=== PATIENT | male | born 1955 | race Caucasian/White ===

== ENCOUNTER 2019-08-25 09:54 | Observation (INO) | payer MEDICARE, OTHER ==
[~2019-08-25 09:54] MED LIST: Acetaminophen 325 MG Tab PO SCH; EPINEPHrine 1 MG/ML SDV ONE; Lidocaine 1%/Sod Bicarbonate in NS 8.4% 1 ML Syringe IDERM PRN; Pregabalin 25 MG Cap PO SCH; Ropivacaine 0.5% 5 MG/ML 30 ML SDV ONE; Sodium Chloride 0.9% 10 ML Syringe FLUSH PRN; oxyCODONE ER 10 MG TAB.ER PO SCH
[2019-08-25] MEDS: Lactated Ringers 1,000 ML IV SCH ×2 (10:25→21:31)
--- NOTE | 2019-08-25 11:33 | PCM.PREANE ---
Preanesthetic Assessment - Procedure Proposed Procedure: left total knee - Anesthesia/Transfusion/Family Hx Anesthesia History: Prior Anesthesia Without Reaction Family History of Anesthesia Reaction: No Transfusion History: No Prior Transfusion(s) - Review of Systems General: No Symptoms Pulmonary: No Symptoms Cardiovascular: No Symptoms Gastrointestinal: No Symptoms Neurological: No Symptoms Other: Reports: Easy Bruising - Physical Assessment NPO Status Date: 08/24/19 (sip of water with pill) NPO Status Time: 21:00 Vital Signs: Last Vital Signs Temp 97.2 F 08/25/19 10:05 Pulse 56 L 08/25/19 10:05 Resp 16 08/25/19 10:05 BP 159/91 H 08/25/19 10:05 Pulse Ox 96 08/25/19 10:05 Height: 6 ft Weight: 122.016 kg ASA Class: 3 Mental Status: Alert & Oriented x3 Airway Class: Mallampati = 2 Dentition: Reports: Bridge, Missing Tooth/Teeth Thyro-Mental Finger Breadths: 3 Mouth Opening Finger Breadths: 3 ROM/Head Extension: Other Lungs: Clear to Auscultation Cardiovascular: Regular Rate, Regular Rhythm - Lab Values: Laboratory Last Values C-Reactive Protein < 0.2 mg/dL (<1.0) 08/25/19 10:20 MRSA (PCR) Negative 08/19/19 09:25 - Allergies Allergies/Adverse Reactions: Allergies Allergy/AdvReac Type Severity Reaction Status Date / Time shrimp Allergy Hives Uncoded 08/22/19 12:56 - Blood Blood Available: No - Acknowledgements Anesthesia Type Planned: Spinal Pt an Appropriate Candidate for the Planned Anesthesia: Yes Alternatives and Risks of Anesthesia Discussed w Pt/Guardian: Yes Pt/Guardian Understands and Agrees with Anesthesia Plan: Yes PreAnesthesia Questionnaire HEENT History: Reports: Impaired Vision, Other (See Below) Other HEENT History: bridge, partial, glasses Cardiovascular History: Reports: Afib, High Cholesterol, Hypertension Respiratory History: Reports: None Gastrointestinal History: Reports: None, GERD (occasionally) Genitourinary History: Reports: Other (See Below) Other Genitourinary History: erectile dysfunction [employer] History: Reports: None Musculoskeletal History: Reports: Other (See Below) Other Musculoskeletal History: bilateral carpal release, knee pain Neurological History: Reports: None Psychiatric History: Reports: None Endocrine/Metabolic History: Reports: None Hematologic History: Reports: None Immunologic History: Reports: None Oncologic (Cancer) History: Reports: None Dermatologic History: Reports: None - Past Surgical History Head Surgeries/Procedures: Reports: None HEENT Surgical History: Reports: Naso-Sinus Surgery Cardiovascular Surgical History: Reports: None Respiratory Surgical History: Reports: None GI Surgical History: Reports: Appendectomy Female Surgical History: Reports: None Male Surgical History: Reports: None Endocrine Surgical History: Reports: None Neurological Surgical History: Reports: None Musculoskeletal Surgical History: Reports: Carpal Tunnel (bilateral) Oncologic Surgical History: Reports: None Dermatological Surgical History: Reports: None - History Comment History Comment: no xarelto sun and sunday - SUBSTANCE USE Smoking Status *Q: Never Smoker Tobacco Use Within Last Twelve Months: No Second Hand Smoke Exposure: No Days Per Week of Alcohol Use: 3 Number of Drinks Per Day: 5 (beer) Total Drinks Per Week: 15 Recreational Drug Use History: No - HOME MEDS Home Medications: Home Meds Amiodarone [Cordarone] 200 mg PO DAILY 08/22/19 [History] Quinapril HCl 40 mg PO BID 08/22/19 [History] Rivaroxaban [Xarelto] 20 mg PO DAILY 08/22/19 [History] Simvastatin [Zocor] 40 mg PO DAILY 08/22/19 [History] Triamterene/Hydrochlorothiazid [Triamterene-HCTZ 37.5-25 MG] 1 cap PO DAILY [History] Vardenafil HCl [Levitra] 20 mg PO ASDIRECTED PRN 08/22/19 [History] - CURRENT (IN HOUSE) MEDS Current Meds: Current Medications Acetaminophen (Tylenol) 975 mg PO ONETIME JOSHUA Stop: 08/25/19 12:00 Lactated Ringer's (Ringers, Lactated) 1,000 mls @ 125 mls/hr IV ASDIRECTED JOSHUA Stop: 08/25/19 23:00 Last Admin: 08/25/19 10:25 Dose: 125 mls/hr Lidocaine/Sodium Bicarbonate (Buffered Lidocaine 1% In Ns 8.4%) 0.25 ml IDERM ONETIME PRN PRN Reason: Prior to IV Start Stop: 08/25/19 18:00 Last Admin: 08/25/19 10:25 Dose: 0.25 ml Oxycodone HCl (Oxycontin) 10 mg PO ONETIME JOSHUA Stop: 08/25/19 12:00 Pregabalin (Lyrica) 50 mg PO ONETIME JOSHUA Stop: 08/25/19 12:00 Sodium Chloride (Saline Flush) 10 ml FLUSH ASDIRECTED PRN PRN Reason: Keep Vein Open Stop: 08/25/19 18:00 Discontinued Medications Bupivacaine HCl (Sensorcaine-Mpf 0.25%) Confirm Administered Dose 30 ml .ROUTE .STK-MED ONE Stop: 08/25/19 10:31 Bupivacaine HCl (Sensorcaine-Mpf 0.25%) Confirm Administered Dose 10 ml .ROUTE .STK-MED ONE Stop: 08/25/19 11:15 Cefazolin Sodium (Ancef) Confirm Administered Dose 2 gm .ROUTE .STK-MED ONE Stop: 08/25/19 10:31 Epinephrine HCl (Adrenalin) Confirm Administered Dose 1 mg .ROUTE .STK-MED ONE Stop: 08/25/19 08:02 Ropivacaine (Naropin 0.5%) Confirm Administered Dose 30 ml .ROUTE .STK-MED ONE Stop: 08/25/19 08:02 Tranexamic Acid (Cyklokapron) Confirm Administered Dose 1,000 mg .ROUTE .STK- MED ONE Stop: 08/25/19 10:31 Triamcinolone Acetonide (Kenalog-40) Confirm Administered Dose 80 mg .ROUTE .STK -MED ONE Stop: 08/25/19 11:15 Vancomycin HCl (Vancomycin) Confirm Administered Dose 1 gm .ROUTE .STK-MED ONE Stop: 08/25/19 10:31
[2019-08-25] MEDS ORDERED: ceFAZolin 1 GM Vial ONE (11:49)
[2019-08-25] MEDS ORDERED: fentaNYL 100 MCG/2 ML SDV ONE (12:14)
[2019-08-25] MEDS ORDERED: Propofol 200 MG/20 ML SDV ONE ×2 (12:14→16:10)
[2019-08-25] MEDS ORDERED: Midazolam 1 MG/ML 2 ML SDV ONE ×2 (12:14→16:00)
--- NOTE | 2019-08-25 12:46 | PCM.CONS ---
H&P History of Present Illness - General Date of Service: 08/25/19 Admit Problem/Dx: Admission Diagnosis/Problem Admission Diagnosis/Problem Osteoarthritis of knee Source of Information: Patient, Provider, RN, RN Notes Reviewed History Limitations: Reports: No Limitations - History of Present Illness Initial Comments - Free Text/Narative: Jacob Baez is a 64 yo male patient of Dr. Islas who is post-operative day 0 of left TKA with right knee steroid injection. Hospital medicine was consulted for post-operative medical care of the following listed medical conditions. At this time he is resting comfortably in bed. Pain is controlled. He denies any chest pain, shortness of breath, palpitations, nausea, or vomiting. He carries a history of: HTN, proximal A-fib on xarelto, ED, Dyslipidemia, Cardiomegaly, GERD. He was never a smoker. He is a full code. His primary care provider is Dr. Ferrara. Left Knee Pain Score (Numeric/FACES): 0 - Related Data Allergies/Adverse Reactions: Allergies Allergy/AdvReac Type Severity Reaction Status Date / Time shrimp Allergy Hives Uncoded 08/22/19 12:56 Home Medications: Home Meds Amiodarone [Cordarone] 200 mg PO DAILY 08/22/19 [History] Quinapril HCl 40 mg PO BID 08/22/19 [History] Rivaroxaban [Xarelto] 20 mg PO DAILY 08/22/19 [History] Simvastatin [Zocor] 40 mg PO DAILY 08/22/19 [History] Triamterene/Hydrochlorothiazid [Triamterene-HCTZ 37.5-25 MG] 1 cap PO DAILY [History] Vardenafil HCl [Levitra] 20 mg PO ASDIRECTED PRN 08/22/19 [History] Past Medical History HEENT History: Reports: Impaired Vision, Other (See Below) Other HEENT History: bridge, partial, glasses Cardiovascular History: Reports: Afib, High Cholesterol, Hypertension Respiratory History: Reports: None Gastrointestinal History: Reports: None, GERD (occasionally) Genitourinary History: Reports: Other (See Below) Other Genitourinary History: erectile dysfunction [employer] History: Reports: None Musculoskeletal History: Reports: Other (See Below) Other Musculoskeletal History: bilateral carpal release, knee pain Neurological History: Reports: None Psychiatric History: Reports: None Endocrine/Metabolic History: Reports: None Hematologic History: Reports: None Immunologic History: Reports: None Oncologic (Cancer) History: Reports: None Dermatologic History: Reports: None - Past Surgical History Head Surgeries/Procedures: Reports: None HEENT Surgical History: Reports: Naso-Sinus Surgery Cardiovascular Surgical History: Reports: None Respiratory Surgical History: Reports: None GI Surgical History: Reports: Appendectomy Female Surgical History: Reports: None Male Surgical History: Reports: None Endocrine Surgical History: Reports: None Neurological Surgical History: Reports: None Musculoskeletal Surgical History: Reports: Carpal Tunnel (bilateral) Oncologic Surgical History: Reports: None Dermatological Surgical History: Reports: None - History Comment History Comment: no xarelto sun and sunday Social & Family History - Tobacco Use Smoking Status *Q: Never Smoker Second Hand Smoke Exposure: No - Caffeine Use Caffeine Use: Reports: Coffee - Alcohol Use Days Per Week of Alcohol Use: 3 Number of Drinks Per Day: 5 (beer) Total Drinks Per Week: 15 - Recreational Drug Use Recreational Drug Use: No Drug Use in Last 12 Months: No H&P Review of Systems - Review of Systems: Review Of Systems: See Below General: Reports: No Symptoms. Denies: Fever, Chills HEENT: Reports: No Symptoms. Denies: Dysphasia, Headaches, Sore Throat Pulmonary: Reports: No Symptoms. Denies: Shortness of Breath, Wheezing, Cough, Sputum Cardiovascular: Reports: No Symptoms. Denies: Chest Pain, Palpitations, Dyspnea on Exertion, Edema Gastrointestinal: Reports: No Symptoms. Denies: Abdominal Pain, Constipation, Diarrhea, Nausea, Vomiting Genitourinary: Reports: No Symptoms. Denies: Pain Musculoskeletal: Reports: Leg Pain Skin: Reports: No Symptoms. Denies: Cyanosis Psychiatric: Reports: No Symptoms. Denies: Confusion Neurological: Reports: No Symptoms Hematologic/Lymphatic: Reports: No Symptoms Immunologic: Reports: No Symptoms Exam - Exam Exam: See Below - Vital Signs Vital Signs: Last Vital Signs Temp 97.2 F 08/25/19 10:05 Pulse 56 L 08/25/19 10:05 Resp 16 08/25/19 10:05 BP 159/91 H 08/25/19 10:05 Pulse Ox 96 08/25/19 10:05 Weight: 269 lb - Exam Quality Assessment: DVT Prophylaxis General: Alert, Oriented, Cooperative. No: Mild Distress HEENT: Conjunctiva Clear, EACs Clear, EOMI, Hearing Intact, Mucosa Moist & [place] , Nares Patent, Posterior Pharynx Clear, PERRLA Neck: Supple, Trachea Midline Lungs: Clear to Auscultation, Normal Respiratory Effort Cardiovascular: Regular Rate, Regular Rhythm GI/Abdominal Exam: Normal Bowel Sounds, Soft, Non-Tender, No Distention, No Abnormal Bruit (Male) Exam: Deferred Rectal (Males) Exam: Deferred Back Exam: Normal Inspection, Full Range of Motion Extremities: No Pedal Edema, Normal Capillary Refill, Leg Pain, Limited Range of Motion, Other (Bandage in place on left leg. Bandage is dry and intact. Cooling pack in palce. ) Peripheral Pulses: 2+: Radial (L), Radial (R), Dorsalis Pedis (L), Dorsalis Pedis (R) Skin: Warm, Dry, Intact Neurological: Cranial Nerves Intact (Grossly ) Neuro Extensive - Mental Status: Alert, Oriented x3, Normal Mood/Affect - Patient Data Lab Results Last 24 hrs: Laboratory Results - last 24 hr 08/25/19 Range/Units 10:20 C-Reactive Protein < 0.2 (<1.0) mg/dL Consult PN Assessment/Plan POD#: 0 Procedures: Procedures COMPREHEN METABOLIC PANEL (03/12/14) EMERGENCY DEPT VISIT (03/12/14) EMERGENCY DEPT VISIT (03/12/14) ROUTINE VENIPUNCTURE (03/12/14) (1) S/P total knee arthroplasty SNOMED Code(s): 9366629358203, 639657837, 7187459922107 Code(s): Z96.659 - PRESENCE OF UNSPECIFIED ARTIFICIAL KNEE JOINT Priority: High Current Visit: Yes Qualifiers: Laterality: left Qualified Code(s): Z96.652 - Presence of left artificial knee joint (2) Osteoarthritis SNOMED Code(s): 238205018 Code(s): M19.90 - UNSPECIFIED OSTEOARTHRITIS, UNSPECIFIED SITE Priority: High Current Visit: Yes Qualifiers: Osteoarthritis location: knee Osteoarthritis type: primary Laterality: bilateral Qualified Code(s): M17.0 - Bilateral primary osteoarthritis of knee (3) HTN (hypertension) SNOMED Code(s): 64482176 Code(s): I10 - ESSENTIAL (PRIMARY) HYPERTENSION Priority: Medium Current Visit: No Qualifiers: Hypertension type: unspecified Qualified Code(s): I10 - Essential (primary ) hypertension (4) HLD (hyperlipidemia) SNOMED Code(s): 33955732 Code(s): E78.5 - HYPERLIPIDEMIA, UNSPECIFIED Priority: Low Current Visit : No Qualifiers: Hyperlipidemia type: unspecified Qualified Code(s): E78.5 - Hyperlipidemia , unspecified (5) A-fib SNOMED Code(s): 34567167 Code(s): I48.91 - UNSPECIFIED ATRIAL FIBRILLATION Priority: Medium Current Visit: Yes Qualifiers: Atrial fibrillation type: paroxysmal Qualified Code(s): I48.0 - Paroxysmal atrial fibrillation (6) Erectile dysfunction SNOMED Code(s): 510371827 Code(s): N52.9 - MALE ERECTILE DYSFUNCTION, UNSPECIFIED Priority: Low Current Visit: No Qualifiers: Erectile dysfunction type: unspecified Qualified Code(s): N52.9 - Male erectile dysfunction, unspecified (7) Cardiomegaly SNOMED Code(s): 8263987 Code(s): I51.7 - CARDIOMEGALY Priority: Medium Current Visit: No (8) GERD (gastroesophageal reflux disease) SNOMED Code(s): 908281476 Code(s): K21.9 - GASTRO-ESOPHAGEAL REFLUX DISEASE WITHOUT ESOPHAGITIS Priority: Low Current Visit: No Qualifiers: Esophagitis presence: esophagitis presence not specified Qualified Code(s) : K21.9 - Gastro-esophageal reflux disease without esophagitis Problem List Initiated/Reviewed/Updated: Yes Plan: I/P: Acute: S/P left total knee arthroplasty - post-operative day 0 -DVT prophylaxis and pain management per primary care team -PT/OT -IS/RT -Monitor oxygen saturation -Titrate oxygen as needed -Home medications reviewed -Vital signs stable -Monitor labs -Pre-operative Hgb was 15.7 -Pre-operative GFR was 53 -Pre-operative Creatinine was 1.36 -Pre-operative WBC was 10.92 -Pre-operative CRP <0.2 Osteoarthritis of bilateral knees -Pain management per primary care team S/P left knee cortisone injection -Management per primary team Chronic: HTN proximal A-fib on xarelto ED Dyslipidemia Cardiomegaly GERD Plan: Telemetry CM for discharge planning GI prophylaxis Home medications as indicated Other orders as listed above Routine AM labs He is a full code. His PCP is Dr. Ferrara. Thank you for allowing us to participate in the care of this patient!! Requesting Provider: Dr. Islas Date Consult Requested: 08/25/19 Patient History Reviewed: Yes Admission H&P Reviewed: Yes Time Spent (in minutes): 35
[2019-08-25] MEDS ORDERED: Bupivacaine 0.75% 30 ML SDV ONE (13:28)
[2019-08-25] MEDS ORDERED: Morphine 2 MG/ML Syringe IVPUSH PRN (14:00)
[2019-08-25] MEDS ORDERED: Ondansetron 4 MG/2 ML SDV IVPUSH PRN ×2 (14:00→15:42)
[2019-08-25] MEDS ORDERED: Bisacodyl 5 MG Tab PO PRN (14:00)
[2019-08-25] MEDS ORDERED: Cyclobenzaprine 10 MG Tab PO PRN (14:00)
[2019-08-25] MEDS ORDERED: Ketorolac 15 MG/ML SDV IVPUSH PRN (14:00)
[2019-08-25] MEDS ORDERED: Naloxone 0.4 MG/ML SDV IVPUSH PRN (14:00)
[2019-08-25] MEDS ORDERED: Sennosides 8.6 MG Tab PO PRN (14:00)
[2019-08-25] MEDS ORDERED: Magnesium Hydroxide 400 MG/5 ML Susp 30 ML Cup PO PRN (14:00)
[2019-08-25] MEDS ORDERED: Lactated Ringers 1,000 ML ONE ×2 (14:33→14:45)
[2019-08-25] MEDS ORDERED: Lidocaine 1% 4 ML ONE (14:33)
[2019-08-25] MEDS ORDERED: Lidocaine 1% 2 ML ONE (14:35)
[2019-08-25] MEDS ORDERED: Lidocaine 1% 12 ML ONE (14:47)
[2019-08-25] MEDS: Iodine/Sodium Iodide 2% Tincture 30 ML Bottle ONE ×2 (15:24→15:53)
[2019-08-25] MEDS: ceFAZolin 1 GM Vial ONE ×2 (15:25→15:56)
[2019-08-25] MEDS: Morphine 8 MG, EPINEPHrine 0.3 MG, Cefuroxime 750 MG, Ketorolac 30 MG, Sodium Chloride ... ONE ×15 (15:26→19:48)
[2019-08-25] MEDS: Vancomycin 1 GM SDV ONE ×2 (15:27→16:03)
[2019-08-25] MEDS: Bupivacaine 0.25% 10 ML SDV ONE ×4 (15:27→16:27)
[2019-08-25] MEDS ORDERED: fentaNYL 100 MCG/2 ML SDV IVPUSH PRN (15:42)
[2019-08-25] MEDS ORDERED: HYDROmorphone 0.5 MG/0.5 ML Syringe IVPUSH PRN (15:42)
[2019-08-25] MEDS: Triamcinolone Acetonide 40 MG/ML 1 ML MDV ONE ×2 (15:43→16:27)
--- NOTE | 2019-08-25 16:42 | PCM.POSTAN ---
POST ANESTHESIA ASSESSMENT - MENTAL STATUS Mental Status: Alert, Oriented - VITAL SIGNS Vital Signs: Last Vital Signs Temp 97.2 F 08/25/19 10:05 Pulse 56 L 08/25/19 10:05 Resp 16 08/25/19 10:05 BP 159/91 H 08/25/19 10:05 Pulse Ox 96 08/25/19 10:05 57 17 122/73 93% 97.5 - RESPIRATORY Respiratory Status: Respiratory Rate WNL, Airway Patent, O2 Saturation Stable, Supplemental Oxygen - CARDIOVASCULAR CV Status: Pulse Rate WNL, Blood Pressure Stable - GASTROINTESTINAL GI Status: No Symptoms - PAIN Pain Score: 0 - POST OP HYDRATION Hydration Status: Adequate & Stable
--- NOTE | 2019-08-25 16:57 | PCM.SN ---
- Free Text/Narrative Note: Left selective femoral nerve block at the adductor canal for post-procedure pain control under US guidance requested by Dr. Islas. Date:08/25/19 Time Out: 164 Start: 1647 End: 165 Chart reviewed. Consent signed. Questions answered. Appropriate monitors applied. Time out performed. Left mid-shaft femur identified with ultrasound, scanning medially of femur, the femoral artery in the adductor canal visualized , and the femoral nerve located laterally to the artery. The skin was prepped lateral to the ultrasound probe with chlorahexadine times two. The 21ga 4 insulated block needle was inserted under direct ultrasound guidance into the adductor canal. 25mL of 0.5% ropivacaine with 1:200,000 epinephrine was injected circumferentially around the nerve with intermittent negative aspiration noted. Patient tolerated the procedure well. Sterile technique noted along with sterile gloves, mask, and sterile probe cover. See picture on progress note and vital signs on nurses notes. Block completed in PACU. Maddie De La Rosa CRNA
--- NOTE | 2019-08-25 17:19 | CR ---
Left knee: AP and lateral views left knee were obtained. Comparison: Previous knee study. Knee prosthesis is seen. Components are aligned. Underlying bony structures are intact. Soft tissue air is noted from the surgical procedure. Impression: 1. Satisfactory postoperative radiographic appearance recently placed left knee prosthesis. Diagnostic code #2
[2019-08-25] MEDS: Acetaminophen/oxyCODONE 325-5 MG Tab PO PRN (19:41)
[2019-08-25] MEDS: Docusate Sodium 100 MG Cap PO SCH (21:30)
[2019-08-25] MEDS: Famotidine 20 MG Tab PO SCH (21:30)
[2019-08-25] MEDS: ceFAZolin 2 GM in Premix Bag 1 BAG IV SCH (21:30)
[2019-08-25] MEDS: ceFAZolin 1 GM in Premix Bag 1 BAG IV SCH (23:10)
[2019-08-26] MEDS: Acetaminophen/oxyCODONE 325-5 MG Tab PO PRN ×3 (00:06→10:43)
[2019-08-26] MEDS: ceFAZolin 2 GM in Premix Bag 1 BAG IV SCH (05:06)
[2019-08-26] MEDS: ceFAZolin 1 GM in Premix Bag 1 BAG IV SCH (05:45)
--- NOTE | 2019-08-26 06:43 | PCM.CONSN ---
- General Info Date of Service: 08/26/19 Admission Dx/Problem (Free Text): Admission Diagnosis/Problem Admission Diagnosis/Problem Osteoarthritis of knee Functional Status: Reports: Pain Controlled, Tolerating Diet, Ambulating, Urinating, Incentive Spirometry. Denies: New Symptoms - Review of Systems General: Reports: No Symptoms. Denies: Fever, Weakness, Fatigue, Malaise, Chills HEENT: Reports: No Symptoms. Denies: Headaches, Sore Throat Pulmonary: Reports: No Symptoms. Denies: Shortness of Breath, Cough, Sputum Cardiovascular: Reports: No Symptoms. Denies: Chest Pain, Palpitations, Dyspnea on Exertion Gastrointestinal: Reports: No Symptoms. Denies: Abdominal Pain, Constipation, Diarrhea, Nausea, Vomiting Genitourinary: Reports: No Symptoms. Denies: Pain Musculoskeletal: Reports: Leg Pain Skin: Reports: No Symptoms. Denies: Cyanosis Neurological: Reports: No Symptoms. Denies: Confusion Psychiatric: Reports: No Symptoms - Patient Data Vitals - Most Recent: Last Vital Signs Temp 97.5 F 08/26/19 03:32 Pulse 63 08/26/19 03:32 Resp 18 08/26/19 03:32 BP 134/88 08/26/19 03:32 Pulse Ox 97 08/26/19 03:32 Weight - Most Recent: 269 lb I&O - Last 24 Hours: Intake & Output 08/25/19 08/25/19 08/26/19 14:59 22:59 06:59 Intake Total 900 Balance 900 Lab Results Last 24 Hours: Laboratory Results - last 24 hr 08/25/19 08/26/19 Range/Units 10:20 05:30 WBC 16.22 H (4.23-9.07) K/mm3 RBC 4.74 (4.63-6.08) M/mm3 Hgb 13.7 (13.7-17.5) gm/dl Hct 41.5 (40.1-51.0) % MCV 87.6 (79.0-92.2) fl MCH 28.9 (25.7-32.2) pg MCHC 33.0 (32.2-35.5) g/dl RDW Std Deviation 43.8 (35.1-43.9) fL Plt Count 308 (163-337) K/mm3 MPV 11.0 (9.4-12.3) fl C-Reactive Protein < 0.2 (<1.0) mg/dL Med Orders - Current: Current Medications Amiodarone HCl (Cordarone) 200 mg PO DAILY [facility] Bisacodyl (Dulcolax) 5 mg PO DAILY PRN PRN Reason: Constipation Cyclobenzaprine HCl (Flexeril) 10 mg PO TID PRN PRN Reason: Spasms Last Admin: 08/26/19 05:05 Dose: 10 mg Docusate Sodium (Colace) 100 mg PO BID [facility] Last Admin: 08/25/19 21:30 Dose: 100 mg Famotidine (Pepcid) 20 mg PO Q12H [facility] Last Admin: 08/25/19 21:30 Dose: 20 mg Cefazolin Sodium/Dextrose 2 gm (/ Premix) 50 mls @ 100 mls/hr IV Q8H [facility] Stop: 08/26/19 13:29 Last Admin: 08/26/19 05:06 Dose: 100 mls/hr Cefazolin Sodium/Dextrose 1 gm (/ Premix) 50 mls @ 100 mls/hr IV Q8H [facility] Stop: 08/26/19 13:29 Last Admin: 08/26/19 05:45 Dose: 100 mls/hr Ketorolac Tromethamine (Toradol) 15 mg IVPUSH Q6H PRN PRN Reason: Pain Magnesium Hydroxide (Milk Of Magnesia) 30 ml PO BID PRN PRN Reason: Constipation Morphine Sulfate (Morphine) 2 mg IVPUSH Q2H PRN PRN Reason: Breakthrough Pain Naloxone HCl (Narcan) 0.1 mg IVPUSH Q5M PRN PRN Reason: Oversedation Ondansetron HCl (Zofran) 4 mg IVPUSH Q6H PRN PRN Reason: Nausea/Vomiting Oxycodone/Acetaminophen (Percocet 325-5 Mg) 1 - 2 tab PO Q4H PRN PRN Reason: Pain Last Admin: 08/26/19 06:32 Dose: 2 tab Senna (Senna) 8.6 mg PO BID PRN PRN Reason: Constipation Simvastatin (Zocor) 40 mg PO DAILY [facility] Discontinued Medications Acetaminophen (Tylenol) 975 mg PO ONETIME [facility] Stop: 08/25/19 12:00 Last Admin: 08/25/19 12:24 Dose: 975 mg Bupivacaine HCl (Sensorcaine-Mpf 0.25%) Confirm Administered Dose 30 ml .ROUTE .STK-MED ONE Stop: 08/25/19 10:31 Last Admin: 08/25/19 16:01 Dose: 30 ml Bupivacaine HCl (Sensorcaine-Mpf 0.25%) Confirm Administered Dose 10 ml .ROUTE .STK-MED ONE Stop: 08/25/19 11:15 Last Admin: 08/25/19 16:27 Dose: 4 ml Bupivacaine HCl (Sensorcaine-Mpf 0.75%) Confirm Administered Dose 30 ml .ROUTE .STK-MED ONE Stop: 08/25/19 13:29 Cefazolin Sodium (Ancef) Confirm Administered Dose 2 gm .ROUTE .ST-MED ONE Stop: 08/25/19 10:31 Last Admin: 08/25/19 15:56 Dose: 2 gm Cefazolin Sodium (Ancef) Confirm Administered Dose 3 gm .ROUTE .[facility]-MED ONE Stop: 08/25/19 11:50 Morphine Sulfate 8 mg/Epinephrine HCl 0.3 mg/Cefuroxime Sodium 750 mg/Ketorolac Tromethamine 30 mg/Sodium Chloride 27.9 ml 0 mg .XX ONETIME ONE Stop: 08/25/19 14:01 Last Admin: 08/25/19 19:48 Dose: Not Given Epinephrine HCl (Adrenalin) Confirm Administered Dose 1 mg .ROUTE .ST-MED ONE Stop: 08/25/19 08:02 Fentanyl (Sublimaze) Confirm Administered Dose 100 mcg .ROUTE .ST-MED ONE Stop: 08/25/19 12:15 Fentanyl (Sublimaze) 50 mcg IVPUSH Q5M PRN PRN Reason: Pain Hydromorphone HCl (Dilaudid) 0.5 mg IVPUSH Q10M PRN PRN Reason: Pain (severe 7-10) Lactated Ringer's (Ringers, Lactated) 1,000 mls @ 125 mls/hr IV ASDIRECTED [facility] Stop: 08/25/19 23:00 Last Admin: 08/25/19 21:31 Dose: 125 mls/hr Lidocaine HCl (Xylocaine-Mpf 1%) Confirm Administered Dose 4 mls @ as directed .ROUTE .STK-MED ONE Stop: 08/25/19 14:34 Lactated Ringer's (Ringers, Lactated) Confirm Administered Dose 1,000 mls @ as directed .ROUTE .STK-MED ONE Stop: 08/25/19 14:34 Lidocaine HCl (Xylocaine-Mpf 1%) Confirm Administered Dose 2 mls @ as directed .ROUTE .STK-MED ONE Stop: 08/25/19 14:36 Lactated Ringer's (Ringers, Lactated) Confirm Administered Dose 1,000 mls @ as directed .ROUTE .STK-MED ONE Stop: 08/25/19 14:46 Lidocaine HCl (Xylocaine-Mpf 1%) Confirm Administered Dose 12 mls @ as directed .ROUTE .STK-MED ONE Stop: 08/25/19 14:48 Iodine (Iodine 2% Mild Tincture) Confirm Administered Dose 30 ml .ROUTE .STK- MED ONE Stop: 08/25/19 12:44 Last Admin: 08/25/19 15:53 Dose: 18 ml Lidocaine/Sodium Bicarbonate (Buffered Lidocaine 1% In Ns 8.4%) 0.25 ml IDERM ONETIME PRN PRN Reason: Prior to IV Start Stop: 08/25/19 18:00 Last Admin: 08/25/19 10:25 Dose: 0.25 ml Midazolam HCl (Versed 1 Mg/Ml) Confirm Administered Dose 2 mg .ROUTE .STK-MED ONE Stop: 08/25/19 12:15 Midazolam HCl (Versed 1 Mg/Ml) Confirm Administered Dose 2 mg .ROUTE .STK-MED ONE Stop: 08/25/19 16:01 Ondansetron HCl (Zofran) 4 mg IVPUSH ONETIME PRN PRN Reason: Nausea/Vomiting Oxycodone HCl (Oxycontin) 10 mg PO ONETIME [facility] Stop: 08/25/19 12:00 Last Admin: 08/25/19 12:24 Dose: 10 mg Pregabalin (Lyrica) 50 mg PO ONETIME [facility] Stop: 08/25/19 12:00 Last Admin: 08/25/19 12:24 Dose: 50 mg Propofol (Diprivan 20 Ml) Confirm Administered Dose 600 mg .ROUTE .STK-MED ONE Stop: 08/25/19 12:15 Propofol (Diprivan 20 Ml) Confirm Administered Dose 200 mg .ROUTE .STK-MED ONE Stop: 08/25/19 16:11 Ropivacaine (Naropin 0.5%) Confirm Administered Dose 30 ml .ROUTE .STK-MED ONE Stop: 08/25/19 08:02 Sodium Chloride (Saline Flush) 10 ml FLUSH ASDIRECTED PRN PRN Reason: Keep Vein Open Stop: 08/25/19 18:00 Tranexamic Acid (Cyklokapron) Confirm Administered Dose 1,000 mg .ROUTE .STK- MED ONE Stop: 08/25/19 10:31 Last Admin: 08/25/19 16:08 Dose: 1,000 mg Triamcinolone Acetonide (Kenalog-40) Confirm Administered Dose 80 mg .ROUTE .STK -MED ONE Stop: 08/25/19 11:15 Last Admin: 08/25/19 16:27 Dose: 80 mg Vancomycin HCl (Vancomycin) Confirm Administered Dose 1 gm .ROUTE .STK-MED ONE Stop: 08/25/19 10:31 Last Admin: 08/25/19 16:03 Dose: 1 gm - Exam Quality Assessment: DVT Prophylaxis General: Alert, Oriented, Cooperative, No Acute Distress HEENT: Pupils Equal, Pupils Reactive, EOMI, Mucous Membr. Moist/[place] Neck: Supple, Trachea Midline Lungs: Clear to Auscultation, Normal Respiratory Effort Cardiovascular: Regular Rate, Regular Rhythm GI/Abdominal Exam: Normal Bowel Sounds, Soft, Non-Tender, No Organomegaly, No Distention (Male) Exam: Deferred Back Exam: Normal Inspection, Full Range of Motion Extremities: No Pedal Edema, Normal Capillary Refill, Leg Pain, Limited Range of Motion, Other (Bandage in palce on left leg. Cooling pack in place ) Peripheral Pulses: 2+: Radial (L), Radial (R), Dorsalis Pedis (L), Dorsalis Pedis (R) Skin: Warm, Dry, Intact Wound/Incisions: Dressing Dry and Intact Neurological: No New Focal Deficit Psy/Mental Status: Alert, Normal Affect, Normal Mood Consult PN Assessment/Plan POD#: 1 Procedures: Procedures COMPREHEN METABOLIC PANEL (03/12/14) EMERGENCY DEPT VISIT (03/12/14) EMERGENCY DEPT VISIT (03/12/14) ROUTINE VENIPUNCTURE (03/12/14) (1) S/P total knee arthroplasty SNOMED Code(s): 7058359741222, 452137292, 9550243456509 Code(s): Z96.659 - PRESENCE OF UNSPECIFIED ARTIFICIAL KNEE JOINT Priority: High Qualifiers: Laterality: left Qualified Code(s): Z96.652 - Presence of left artificial knee joint (2) Osteoarthritis SNOMED Code(s): 382154732 Code(s): M19.90 - UNSPECIFIED OSTEOARTHRITIS, UNSPECIFIED SITE Priority: High Qualifiers: Osteoarthritis location: knee Osteoarthritis type: primary Laterality: bilateral Qualified Code(s): M17.0 - Bilateral primary osteoarthritis of knee (3) HTN (hypertension) SNOMED Code(s): 17910363 Code(s): I10 - ESSENTIAL (PRIMARY) HYPERTENSION Priority: Medium Qualifiers: Hypertension type: unspecified Qualified Code(s): I10 - Essential (primary ) hypertension (4) HLD (hyperlipidemia) SNOMED Code(s): 31795093 Code(s): E78.5 - HYPERLIPIDEMIA, UNSPECIFIED Priority: Low Qualifiers: Hyperlipidemia type: unspecified Qualified Code(s): E78.5 - Hyperlipidemia , unspecified (5) A-fib SNOMED Code(s): 71437299 Code(s): I48.91 - UNSPECIFIED ATRIAL FIBRILLATION Priority: Medium Qualifiers: Atrial fibrillation type: paroxysmal Qualified Code(s): I48.0 - Paroxysmal atrial fibrillation (6) Erectile dysfunction SNOMED Code(s): 204663239 Code(s): N52.9 - MALE ERECTILE DYSFUNCTION, UNSPECIFIED Priority: Low Qualifiers: Erectile dysfunction type: unspecified Qualified Code(s): N52.9 - Male erectile dysfunction, unspecified (7) Cardiomegaly SNOMED Code(s): 5532411 Code(s): I51.7 - CARDIOMEGALY Priority: Medium (8) GERD (gastroesophageal reflux disease) SNOMED Code(s): 206642176 Code(s): K21.9 - GASTRO-ESOPHAGEAL REFLUX DISEASE WITHOUT ESOPHAGITIS Priority: Low Qualifiers: Esophagitis presence: esophagitis presence not specified Qualified Code(s) : K21.9 - Gastro-esophageal reflux disease without esophagitis Problem List Initiated/Reviewed/Updated: Yes My Orders Last 24 Hours: My Active Orders 08/25/19 14:02 Patient Status [ADT] Routine 08/26/19 09:00 Amiodarone [Cordarone] 200 mg PO DAILY Simvastatin [Zocor] 40 mg PO DAILY Plan: I/P: Acute: S/P left total knee arthroplasty - post-operative day 1 -DVT prophylaxis and pain management per primary care team -PT/OT -IS/RT -Monitor oxygen saturation -Titrate oxygen as needed -Home medications reviewed -Vital signs stable -Monitor labs -Pre-operative Hgb was 15.7; Now 13.7 -Pre-operative GFR was 53; Now >60 -Pre-operative Creatinine was 1.36; Now 1.2 -Pre-operative WBC was 10.92; Now 16.22 -Pre-operative CRP <0.2 Osteoarthritis of bilateral knees -Pain management per primary care team S/P left knee cortisone injection -Management per primary team Malignant HTN -Blood pressure 173/87 this AM -IVP hydralizine given with good response -Norvasc 10mg given now -Resume home BP Meds. Chronic: HTN proximal A-fib on xarelto ED Dyslipidemia Cardiomegaly GERD Plan: Telemetry CM for discharge planning GI prophylaxis Home medications as indicated Other orders as listed above Routine AM labs He is a full code. His PCP is Dr. Ferrara. From a hospitalist standpoint Jacob is doing pretty well. He was up ambulating and working with therapies. His pain is controlled. He is off of oxygen and has urinated. His labs are stable. His BP was WNL early this AM but then spiked to 173/87 as above. IVP hydralizine was given with good response and his AM dose of norvasc was also given. He was instructed to continue his home medications as directed. Vital signs have otherwise been stable. He is cleared for discharge pending primary team and PT/OT agreement. Thank you for allowing us to participate in the care of this patient!!
--- NOTE | 2019-08-26 07:36 | PCM48HPAN ---
Post Anesthesia Note - EVALUATION WITHIN 48HRS OF ANESTHETIC Vital Signs in Normal Range: Yes Patient Participated in Evaluation: Yes Respiratory Function Stable: Yes Airway Patent: Yes Cardiovascular Function Stable: Yes Hydration Status Stable: Yes Pain Control Satisfactory: Yes Nausea and Vomiting Control Satisfactory: Yes Mental Status Recovered: Yes Vital Signs: Last Vital Signs Temp 36.4 C 08/26/19 03:32 Pulse 63 08/26/19 03:32 Resp 18 08/26/19 03:32 BP 134/88 08/26/19 03:32 Pulse Ox 97 08/26/19 03:32 - COMMENTS/OBSERVATIONS Free Text/Narrative:: no anesthesia complications noted
[2019-08-26] MEDS: Docusate Sodium 100 MG Cap PO SCH (08:07)
[2019-08-26] MEDS: Famotidine 20 MG Tab PO SCH (08:08)
[2019-08-26] MEDS ORDERED: hydrALAZINE 20 MG/ML SDV IVPUSH ONE (08:43)
[2019-08-26] MEDS ORDERED: QUINAPRIL HCL 40 MG PO SCH (09:00)
[2019-08-26] MEDS ORDERED: amLODIPine 10 MG Tab PO SCH (09:00)
[2019-08-26] MEDS ORDERED: Amiodarone 200 MG Tab PO SCH (09:00)
[2019-08-26] MEDS ORDERED: Simvastatin 40 MG Tab PO SCH (09:00)
--- NOTE | 2019-08-26 17:33 | PCM.SURGPN ---
- General Info Date of Service: 08/26/19 POD#: 1 Functional Status: Reports: Pain Controlled, Tolerating Diet, Ambulating, Urinating, Incentive Spirometry - Review of Systems Musculoskeletal: Reports: Other (Therapy and nursing state the pt has been doing well.) - Patient Data Vitals - Most Recent: Last Vital Signs Temp 98.5 F 08/26/19 09:00 Pulse 70 08/26/19 09:00 Resp 18 08/26/19 09:00 BP 149/69 H 08/26/19 10:41 Pulse Ox 96 08/26/19 09:00 Weight - Most Recent: 269 lb I&O - Last 24 Hours: Intake & Output 08/26/19 08/26/19 08/26/19 06:59 14:59 22:59 Intake Total 0 Balance 0 Lab Results Last 24 Hrs: Laboratory Results - last 24 hr 08/26/19 08/26/19 Range/Units 05:30 05:30 WBC 16.22 H (4.23-9.07) K/mm3 RBC 4.74 (4.63-6.08) M/mm3 Hgb 13.7 (13.7-17.5) gm/dl Hct 41.5 (40.1-51.0) % MCV 87.6 (79.0-92.2) fl MCH 28.9 (25.7-32.2) pg MCHC 33.0 (32.2-35.5) g/dl RDW Std Deviation 43.8 (35.1-43.9) fL Plt Count 308 (163-337) K/mm3 MPV 11.0 (9.4-12.3) fl Sodium 140 (136-145) mEq/L Potassium 4.0 (3.5-5.1) mEq/L Chloride 107 (98-107) mEq/L Carbon Dioxide 25 (21-32) mEq/L Anion Gap 12.0 (5-15) BUN 18 (7-18) mg/dL Creatinine 1.2 (0.7-1.3) mg/dL Est Cr Clr Drug Dosing 67.36 mL/min Estimated GFR (MDRD) > 60 (>60) mL/min BUN/Creatinine Ratio 15.0 (14-18) Glucose 141 H (80-115) mg/dL Calcium 8.5 (8.5-10.1) mg/dL Total Bilirubin 0.5 (0.2-1.0) mg/dL AST 16 (15-37) U/L ALT 42 (16-63) U/L Alkaline Phosphatase 58 (46-116) U/L Total Protein 6.4 (6.4-8.2) g/dl Albumin 3.2 L (3.4-5.0) g/dl Globulin 3.2 gm/dL Albumin/Globulin Ratio 1.0 (1-2) Med Orders - Current: Current Medications Discontinued Medications Acetaminophen (Tylenol) 975 mg PO ONETIME [facility] Stop: 08/25/19 12:00 Last Admin: 08/25/19 12:24 Dose: 975 mg Amiodarone HCl (Cordarone) 200 mg PO DAILY [facility] Last Admin: 08/26/19 08:08 Dose: 200 mg Amlodipine Besylate (Norvasc) 10 mg PO DAILY [facility] Last Admin: 08/26/19 10:41 Dose: 10 mg Bisacodyl (Dulcolax) 5 mg PO DAILY PRN PRN Reason: Constipation Bupivacaine HCl (Sensorcaine-Mpf 0.25%) Confirm Administered Dose 30 ml .ROUTE .STK-MED ONE Stop: 08/25/19 10:31 Last Admin: 08/25/19 16:01 Dose: 30 ml Bupivacaine HCl (Sensorcaine-Mpf 0.25%) Confirm Administered Dose 10 ml .ROUTE .STK-MED ONE Stop: 08/25/19 11:15 Last Admin: 08/25/19 16:27 Dose: 4 ml Bupivacaine HCl (Sensorcaine-Mpf 0.75%) Confirm Administered Dose 30 ml .ROUTE .STK-MED ONE Stop: 08/25/19 13:29 Cefazolin Sodium (Ancef) Confirm Administered Dose 2 gm .ROUTE .STK-MED ONE Stop: 08/25/19 10:31 Last Admin: 08/25/19 15:56 Dose: 2 gm Cefazolin Sodium (Ancef) Confirm Administered Dose 3 gm .ROUTE .STK-MED ONE Stop: 08/25/19 11:50 Morphine Sulfate 8 mg/Epinephrine HCl 0.3 mg/Cefuroxime Sodium 750 mg/Ketorolac Tromethamine 30 mg/Sodium Chloride 27.9 ml 0 mg .XX ONETIME ONE Stop: 08/25/19 14:01 Last Admin: 08/25/19 19:48 Dose: Not Given Cyclobenzaprine HCl (Flexeril) 10 mg PO TID PRN PRN Reason: Spasms Last Admin: 08/26/19 05:05 Dose: 10 mg Docusate Sodium (Colace) 100 mg PO BID [facility] Last Admin: 08/26/19 08:07 Dose: 100 mg Epinephrine HCl (Adrenalin) Confirm Administered Dose 1 mg .ROUTE .STK-MED ONE Stop: 08/25/19 08:02 Famotidine (Pepcid) 20 mg PO Q12H [facility] Last Admin: 08/26/19 08:08 Dose: 20 mg Fentanyl (Sublimaze) Confirm Administered Dose 100 mcg .ROUTE .STK-MED ONE Stop: 08/25/19 12:15 Fentanyl (Sublimaze) 50 mcg IVPUSH Q5M PRN PRN Reason: Pain Hydralazine HCl (Apresoline) 10 mg IVPUSH ONETIME ONE Stop: 08/26/19 08:44 Last Admin: 08/26/19 08:54 Dose: 10 mg Hydromorphone HCl (Dilaudid) 0.5 mg IVPUSH Q10M PRN PRN Reason: Pain (severe 7-10) Lactated Ringer's (Ringers, Lactated) 1,000 mls @ 125 mls/hr IV ASDIRECTED [facility] Stop: 08/25/19 23:00 Last Admin: 08/25/19 21:31 Dose: 125 mls/hr Cefazolin Sodium/Dextrose 2 gm (/ Premix) 50 mls @ 100 mls/hr IV Q8H [facility] Stop: 08/26/19 13:29 Last Admin: 08/26/19 05:06 Dose: 100 mls/hr Lidocaine HCl (Xylocaine-Mpf 1%) Confirm Administered Dose 4 mls @ as directed .ROUTE .STK-MED ONE Stop: 08/25/19 14:34 Lactated Ringer's (Ringers, Lactated) Confirm Administered Dose 1,000 mls @ as directed .ROUTE .STK-MED ONE Stop: 08/25/19 14:34 Lidocaine HCl (Xylocaine-Mpf 1%) Confirm Administered Dose 2 mls @ as directed .ROUTE .STK-MED ONE Stop: 08/25/19 14:36 Lactated Ringer's (Ringers, Lactated) Confirm Administered Dose 1,000 mls @ as directed .ROUTE .STK-MED ONE Stop: 08/25/19 14:46 Lidocaine HCl (Xylocaine-Mpf 1%) Confirm Administered Dose 12 mls @ as directed .ROUTE .STK-MED ONE Stop: 08/25/19 14:48 Cefazolin Sodium/Dextrose 1 gm (/ Premix) 50 mls @ 100 mls/hr IV Q8H [facility] Stop: 08/26/19 13:29 Last Admin: 08/26/19 05:45 Dose: 100 mls/hr Iodine (Iodine 2% Mild Tincture) Confirm Administered Dose 30 ml .ROUTE .STK- MED ONE Stop: 08/25/19 12:44 Last Admin: 08/25/19 15:53 Dose: 18 ml Ketorolac Tromethamine (Toradol) 15 mg IVPUSH Q6H PRN PRN Reason: Pain Lidocaine/Sodium Bicarbonate (Buffered Lidocaine 1% In Ns 8.4%) 0.25 ml IDERM ONETIME PRN PRN Reason: Prior to IV Start Stop: 08/25/19 18:00 Last Admin: 08/25/19 10:25 Dose: 0.25 ml Magnesium Hydroxide (Milk Of Magnesia) 30 ml PO BID PRN PRN Reason: Constipation Midazolam HCl (Versed 1 Mg/Ml) Confirm Administered Dose 2 mg .ROUTE .STK-MED ONE Stop: 08/25/19 12:15 Midazolam HCl (Versed 1 Mg/Ml) Confirm Administered Dose 2 mg .ROUTE .STK-MED ONE Stop: 08/25/19 16:01 Morphine Sulfate (Morphine) 2 mg IVPUSH Q2H PRN PRN Reason: Breakthrough Pain Naloxone HCl (Narcan) 0.1 mg IVPUSH Q5M PRN PRN Reason: Oversedation Ondansetron HCl (Zofran) 4 mg IVPUSH Q6H PRN PRN Reason: Nausea/Vomiting Ondansetron HCl (Zofran) 4 mg IVPUSH ONETIME PRN PRN Reason: Nausea/Vomiting Oxycodone HCl (Oxycontin) 10 mg PO ONETIME [facility] Stop: 08/25/19 12:00 Last Admin: 08/25/19 12:24 Dose: 10 mg Oxycodone/Acetaminophen (Percocet 325-5 Mg) 1 - 2 tab PO Q4H PRN PRN Reason: Pain Last Admin: 08/26/19 10:43 Dose: 2 tab Quinapril Hcl 40 Mg 0 each PO BID [facility] Last Admin: 08/26/19 09:59 Dose: Not Given Pregabalin (Lyrica) 50 mg PO ONETIME [facility] Stop: 08/25/19 12:00 Last Admin: 08/25/19 12:24 Dose: 50 mg Propofol (Diprivan 20 Ml) Confirm Administered Dose 600 mg .ROUTE .STK-MED ONE Stop: 08/25/19 12:15 Propofol (Diprivan 20 Ml) Confirm Administered Dose 200 mg .ROUTE .STK-MED ONE Stop: 08/25/19 16:11 Ropivacaine (Naropin 0.5%) Confirm Administered Dose 30 ml .ROUTE .STK-MED ONE Stop: 08/25/19 08:02 Senna (Senna) 8.6 mg PO BID PRN PRN Reason: Constipation Simvastatin (Zocor) 40 mg PO DAILY [facility] Last Admin: 08/26/19 08:09 Dose: 40 mg Sodium Chloride (Saline Flush) 10 ml FLUSH ASDIRECTED PRN PRN Reason: Keep Vein Open Stop: 08/25/19 18:00 Tranexamic Acid (Cyklokapron) Confirm Administered Dose 1,000 mg .ROUTE .STK- MED ONE Stop: 08/25/19 10:31 Last Admin: 08/25/19 16:08 Dose: 1,000 mg Triamcinolone Acetonide (Kenalog-40) Confirm Administered Dose 80 mg .ROUTE .STK -MED ONE Stop: 08/25/19 11:15 Last Admin: 08/25/19 16:27 Dose: 80 mg Vancomycin HCl (Vancomycin) Confirm Administered Dose 1 gm .ROUTE .STK-MED ONE Stop: 08/25/19 10:31 Last Admin: 08/25/19 16:03 Dose: 1 gm - Exam Wound/Incisions: Dressing Dry and Intact General: Alert, Cooperative, No Acute Distress Lungs: Normal Respiratory Effort Extremities: Other (NVS intact for BLE. Lauren's negative for BLE.) - Problem List Review Problem List Initiated/Reviewed/Updated: Yes - My Orders Last 24 Hours: Active Orders 24 hr Category Date Time Status Ready for Discharge [RC] PER UNIT ROUTINE Care 08/26/19 08:14 Active - Assessment Assessment (Free Text/Narrative):: POD#1 - left TKA with right knee cortisone injection - Plan Plan (Free Text/Narrative):: 1. Hgb 13.7. 2. Pt will resume use of Xarelto. 3. Discharge to home today if cleared by Hospitalist service. 4. Outpatient therapy. The pt's case was discussed with Dr. Islas.
--- NOTE | 2019-08-27 20:09 | PCM.DCSUM1 ---
Discharge Summary - Hospital Course Brief History: Jacob is a 64 yo male who underwent left TKA with right knee cortisone injection with Dr. Islas on 08-25-2019. The procedure was completed under spinal anesthesia with sedation. The pt tolerated the procedure well and was admitted to the [facility] under Medical-Surgical status. Medical management was provided by the Hospitalist service. The pt's Hospital course was remarkable for HTN which was treated and improved. The pt's Hgb on POD#1 was 13.7. On POD#1, the pt resumed use of Xarelto 20mg PO daily. SCDs and TEDs were also ordered for VTE prophylaxis. A Mepilex dressing was placed at the incision site at the time of surgery and remained clean and dry. The pt participated in P.T. and O.T. and progressed well. The pt was allowed to WBAT. On POD#1, the pt was deemed appropriate to discharge to home with his . - Discharge Data Discharge Date: 08/26/19 Discharge Disposition: Home, Self-Care 01 Condition: Good - Referral to Home Health Primary Care Physician: PCP None - Patient Summary/Data Consults: Consultations 08/25/19 11:25 OT Evaluation and Treatment [CONS] Routine PT Evaluation and Treatment [CONS] Routine 08/25/19 11:26 Consult to Physician [CONS] Routine - Patient Instructions Diet: Usual Diet as Tolerated Activity: Apply Ice, As Tolerated, Elevate Extremity, Full Weight Bearing Driving: Do Not Drive Showering/Bathing: May Shower Wound/Incision Care: Keep Operative Site/Wound Site Clean and Dry, Do NOT Change Dressing Notify Provider of: Fever, Increased Pain, Swelling and Redness, Drainage, Nausea and/or Vomiting Other/Special Instructions: Please get up and moving around EVERY HOUR while awake. This helps to prevent blood clots. Please use your walker and have help with mobility as needed. Take a short walk in your home every hour while awake. Please resume use of Xarelto daily as you were using before surgery. At home, please complete the exercises that you learned during the Hospital stay. Schedule for physical therapy. Use the pain medication as needed. The medication may cause drowsiness and constipation. Contact your primary care provider for instructions if you are constipated. You may use a stool softener like docusate sodium or Colace 100mg twice daily and/or a laxative like Miralax daily for constipation. Increase your water and fiber intake while you are using the pain medication. Discontinue use of the pain medication as soon as able. Please do not use other medications that may cause drowsiness (other pain medications, anxiety pills, cold medications, sleeping pills, etc) while using the prescription pain medication. Do not use alcohol while using the pain medication. You may use acetaminophen or Tylenol for pain management, however, please ensure you are not using over 4000 mg or 4 grams of acetaminophen per day from all sources. Your pain medication has 325mg of acetaminophen per tablet. Wear the CHENG hose during the day and you may remove these at night. Elevate the limb to decrease swelling. Place ice to the area often. Place a towel between your skin and the blue pad. Use the incentive spirometer often. Take deep breaths throughout the day. Please keep the dressing in place until follow-up. Notify the Clinic if the dressing becomes saturated. Increase your protein intake while you are healing. If you have diabetes, please closely monitor your blood sugars and notify your primary care provider with abnormal values. Elevated blood sugars increases the risk of infection. Call the Clinic with questions or concerns - [phone]. - Discharge Plan *PRESCRIPTION DRUG MONITORING PROGRAM REVIEWED*: No *COPY OF PRESCRIPTION DRUG MONITORING REPORT IN PATIENT XIOMARA: No Prescriptions/Med Rec: Acetaminophen/oxyCODONE [Percocet 325-5 MG] 1 - 2 tab PO Q4H PRN #60 tablet PRN Reason: Pain Cyclobenzaprine [Flexeril] 10 mg PO TID PRN #40 tablet PRN Reason: Spasms Home Medications: Home Meds Amiodarone [Cordarone] 200 mg PO DAILY 08/22/19 [History] Quinapril HCl 40 mg PO BID 08/22/19 [History] Rivaroxaban [Xarelto] 20 mg PO DAILY 08/22/19 [History] Simvastatin [Zocor] 40 mg PO DAILY 08/22/19 [History] Triamterene/Hydrochlorothiazid [Triamterene-HCTZ 37.5-25 MG] 1 cap PO DAILY [History] Vardenafil HCl [Levitra] 20 mg PO ASDIRECTED PRN 08/22/19 [History] Acetaminophen/oxyCODONE [Percocet 325-5 MG] 1 - 2 tab PO Q4H PRN #60 tablet [Rx] Bisacodyl [Dulcolax] 5 mg PO DAILY PRN tablet 08/26/19 [Rx] Cyclobenzaprine [Flexeril] 10 mg PO TID PRN #40 tablet 08/26/19 [Rx] Docusate Sodium [Colace] 100 mg PO BID cap 08/26/19 [Rx] Famotidine [Pepcid] 20 mg PO Q12H tablet 08/26/19 [Rx] Magnesium Hydroxide [Milk of Magnesia] 30 ml PO BID PRN cup 08/26/19 [Rx] Sennosides [Senna] 8.6 mg PO BID PRN tablet 08/26/19 [Rx] amLODIPine Besylate [Norvasc] 10 mg PO DAILY 08/26/19 [History] Patient Handouts: Total Knee Replacement, Care After, [id number], Knee Injection Referrals: Sera Mayer PA-C [[facility] [employer] [facility]] - (09/02/2019 @ 1115 AM 09/09/2019 @ 1015 AM 10/07/2019 @ 1015 AM) - Discharge Summary/Plan Comment DC Time >30 min.: No - Patient Data Vitals - Most Recent: Last Vital Signs Temp 98.5 F 08/26/19 09:00 Pulse 70 08/26/19 09:00 Resp 18 08/26/19 09:00 BP 149/69 H 08/26/19 10:41 Pulse Ox 96 08/26/19 09:00 Weight - Most Recent: 269 lb Med Orders - Current: Current Medications Discontinued Medications Acetaminophen (Tylenol) 975 mg PO ONETIME [facility] Stop: 08/25/19 12:00 Last Admin: 08/25/19 12:24 Dose: 975 mg Amiodarone HCl (Cordarone) 200 mg PO DAILY [facility] Last Admin: 08/26/19 08:08 Dose: 200 mg Amlodipine Besylate (Norvasc) 10 mg PO DAILY [facility] Last Admin: 08/26/19 10:41 Dose: 10 mg Bisacodyl (Dulcolax) 5 mg PO DAILY PRN PRN Reason: Constipation Bupivacaine HCl (Sensorcaine-Mpf 0.25%) Confirm Administered Dose 30 ml .ROUTE .STK-MED ONE Stop: 08/25/19 10:31 Last Admin: 08/25/19 16:01 Dose: 30 ml Bupivacaine HCl (Sensorcaine-Mpf 0.25%) Confirm Administered Dose 10 ml .ROUTE .STK-MED ONE Stop: 08/25/19 11:15 Last Admin: 08/25/19 16:27 Dose: 4 ml Bupivacaine HCl (Sensorcaine-Mpf 0.75%) Confirm Administered Dose 30 ml .ROUTE .STK-MED ONE Stop: 08/25/19 13:29 Cefazolin Sodium (Ancef) Confirm Administered Dose 2 gm .ROUTE .STK-MED ONE Stop: 08/25/19 10:31 Last Admin: 08/25/19 15:56 Dose: 2 gm Cefazolin Sodium (Ancef) Confirm Administered Dose 3 gm .ROUTE .STK-MED ONE Stop: 08/25/19 11:50 Morphine Sulfate 8 mg/Epinephrine HCl 0.3 mg/Cefuroxime Sodium 750 mg/Ketorolac Tromethamine 30 mg/Sodium Chloride 27.9 ml 0 mg .XX ONETIME ONE Stop: 08/25/19 14:01 Last Admin: 08/25/19 19:48 Dose: Not Given Cyclobenzaprine HCl (Flexeril) 10 mg PO TID PRN PRN Reason: Spasms Last Admin: 08/26/19 05:05 Dose: 10 mg Docusate Sodium (Colace) 100 mg PO BID [facility] Last Admin: 08/26/19 08:07 Dose: 100 mg Epinephrine HCl (Adrenalin) Confirm Administered Dose 1 mg .ROUTE .STK-MED ONE Stop: 08/25/19 08:02 Famotidine (Pepcid) 20 mg PO Q12H [facility] Last Admin: 08/26/19 08:08 Dose: 20 mg Fentanyl (Sublimaze) Confirm Administered Dose 100 mcg .ROUTE .STK-MED ONE Stop: 08/25/19 12:15 Fentanyl (Sublimaze) 50 mcg IVPUSH Q5M PRN PRN Reason: Pain Hydralazine HCl (Apresoline) 10 mg IVPUSH ONETIME ONE Stop: 08/26/19 08:44 Last Admin: 08/26/19 08:54 Dose: 10 mg Hydromorphone HCl (Dilaudid) 0.5 mg IVPUSH Q10M PRN PRN Reason: Pain (severe 7-10) Lactated Ringer's (Ringers, Lactated) 1,000 mls @ 125 mls/hr IV ASDIRECTED [facility] Stop: 08/25/19 23:00 Last Admin: 08/25/19 21:31 Dose: 125 mls/hr Cefazolin Sodium/Dextrose 2 gm (/ Premix) 50 mls @ 100 mls/hr IV Q8H [facility] Stop: 08/26/19 13:29 Last Admin: 08/26/19 05:06 Dose: 100 mls/hr Lidocaine HCl (Xylocaine-Mpf 1%) Confirm Administered Dose 4 mls @ as directed .ROUTE .STK-MED ONE Stop: 08/25/19 14:34 Lactated Ringer's (Ringers, Lactated) Confirm Administered Dose 1,000 mls @ as directed .ROUTE .STK-MED ONE Stop: 08/25/19 14:34 Lidocaine HCl (Xylocaine-Mpf 1%) Confirm Administered Dose 2 mls @ as directed .ROUTE .STK-MED ONE Stop: 08/25/19 14:36 Lactated Ringer's (Ringers, Lactated) Confirm Administered Dose 1,000 mls @ as directed .ROUTE .STK-MED ONE Stop: 08/25/19 14:46 Lidocaine HCl (Xylocaine-Mpf 1%) Confirm Administered Dose 12 mls @ as directed .ROUTE .STK-MED ONE Stop: 08/25/19 14:48 Cefazolin Sodium/Dextrose 1 gm (/ Premix) 50 mls @ 100 mls/hr IV Q8H [facility] Stop: 08/26/19 13:29 Last Admin: 08/26/19 05:45 Dose: 100 mls/hr Iodine (Iodine 2% Mild Tincture) Confirm Administered Dose 30 ml .ROUTE .STK- MED ONE Stop: 08/25/19 12:44 Last Admin: 08/25/19 15:53 Dose: 18 ml Ketorolac Tromethamine (Toradol) 15 mg IVPUSH Q6H PRN PRN Reason: Pain Lidocaine/Sodium Bicarbonate (Buffered Lidocaine 1% In Ns 8.4%) 0.25 ml IDERM ONETIME PRN PRN Reason: Prior to IV Start Stop: 08/25/19 18:00 Last Admin: 08/25/19 10:25 Dose: 0.25 ml Magnesium Hydroxide (Milk Of Magnesia) 30 ml PO BID PRN PRN Reason: Constipation Midazolam HCl (Versed 1 Mg/Ml) Confirm Administered Dose 2 mg .ROUTE .STK-MED ONE Stop: 08/25/19 12:15 Midazolam HCl (Versed 1 Mg/Ml) Confirm Administered Dose 2 mg .ROUTE .STK-MED ONE Stop: 08/25/19 16:01 Morphine Sulfate (Morphine) 2 mg IVPUSH Q2H PRN PRN Reason: Breakthrough Pain Naloxone HCl (Narcan) 0.1 mg IVPUSH Q5M PRN PRN Reason: Oversedation Ondansetron HCl (Zofran) 4 mg IVPUSH Q6H PRN PRN Reason: Nausea/Vomiting Ondansetron HCl (Zofran) 4 mg IVPUSH ONETIME PRN PRN Reason: Nausea/Vomiting Oxycodone HCl (Oxycontin) 10 mg PO ONETIME [facility] Stop: 08/25/19 12:00 Last Admin: 08/25/19 12:24 Dose: 10 mg Oxycodone/Acetaminophen (Percocet 325-5 Mg) 1 - 2 tab PO Q4H PRN PRN Reason: Pain Last Admin: 08/26/19 10:43 Dose: 2 tab Quinapril Hcl 40 Mg 0 each PO BID [facility] Last Admin: 08/26/19 09:59 Dose: Not Given Pregabalin (Lyrica) 50 mg PO ONETIME [facility] Stop: 08/25/19 12:00 Last Admin: 08/25/19 12:24 Dose: 50 mg Propofol (Diprivan 20 Ml) Confirm Administered Dose 600 mg .ROUTE .STK-MED ONE Stop: 08/25/19 12:15 Propofol (Diprivan 20 Ml) Confirm Administered Dose 200 mg .ROUTE .STK-MED ONE Stop: 08/25/19 16:11 Ropivacaine (Naropin 0.5%) Confirm Administered Dose 30 ml .ROUTE .STK-MED ONE Stop: 08/25/19 08:02 Senna (Senna) 8.6 mg PO BID PRN PRN Reason: Constipation Simvastatin (Zocor) 40 mg PO DAILY [facility] Last Admin: 08/26/19 08:09 Dose: 40 mg Sodium Chloride (Saline Flush) 10 ml FLUSH ASDIRECTED PRN PRN Reason: Keep Vein Open Stop: 08/25/19 18:00 Tranexamic Acid (Cyklokapron) Confirm Administered Dose 1,000 mg .ROUTE .STK- MED ONE Stop: 08/25/19 10:31 Last Admin: 08/25/19 16:08 Dose: 1,000 mg Triamcinolone Acetonide (Kenalog-40) Confirm Administered Dose 80 mg .ROUTE .STK -MED ONE Stop: 08/25/19 11:15 Last Admin: 08/25/19 16:27 Dose: 80 mg Vancomycin HCl (Vancomycin) Confirm Administered Dose 1 gm .ROUTE .STK-MED ONE Stop: 08/25/19 10:31 Last Admin: 08/25/19 16:03 Dose: 1 gm
--- NOTE | 2019-08-29 13:57 | PCM.OPNOTE ---
- General Post-Op/Procedure Note Date of Surgery/Procedure: 08/25/19 Operative Procedure(s): left total knee arthroplasty with right knee corticosteroid injection Pre Op Diagnosis: bilateral knee osteoarthrosis Post-Op Diagnosis: Same Anesthesia Technique: Local, MAC, Spinal Primary Surgeon: Jevon Islas Anesthesia Provider: Maddie De La Rosa Personal Assistant: Sera Mayer Personal Assistant: Emely Duffy EBL in mLs: 500 Complications: None Condition: Good Free Text/Narrative:: size 6/ 9mm 38x11
--- NOTE | 2019-08-29 14:24 | OR ---
DATE OF OPERATION: 08/25/2019 SURGEON: Jevon Islas MD OPERATION PERFORMED: Left total knee arthroplasty with right knee corticosteroid injection. PREOPERATIVE DIAGNOSIS: Bilateral knee osteoarthrosis. POSTOPERATIVE DIAGNOSIS: Bilateral knee osteoarthrosis. ANESTHESIA: Local MAC with spinal. ANESTHESIA PROVIDER: Maddie De La Rosa CRNA ASSISTANTS: Sera Mayer PA-C and Emely Duffy LPN ESTIMATED BLOOD LOSS: 500 mL. COMPLICATIONS: None. CONDITION: Stable. IMPLANTS: 1. Ralston size 6 press-fit CR femur. 2. Ralston size 6 press-fit tibial baseplate. 3. Ralston size 6, 9-mm CS polyethylene insert. 4. Jonathan size 38 x 11 mm press-fit asymmetric patella. DESCRIPTION OF PROCEDURE: The patient was identified in the preop holding area. Proper site was marked and identified by the surgeon. The patient was taken back to the operating theater. After adequate anesthesia, the patient's left lower extremity had a nonsterile tourniquet applied and it was sterilely prepped and draped in the usual sterile fashion. OR time-out was performed. The patient received 2 g IV Ancef. At this time, the left lower extremity was exsanguinated. Tourniquet was insufflated to 300 mmHg. Standard medial parapatellar incision was made. Medial parapatellar arthrotomy was created. Deep fibers of the MCL were raised and anterior fat pad was resected. At this time, attention was turned to the patella. Patella measured 26, it was resected to a 15 for a 38 x 11 mm patella. Drill holes were then drilled and found to be in adequate position. The drill was then drilled in the distal femur and the intramedullary distal femoral cutting guide was then placed. 8 mm was resected off the distal femur and was found to be an adequate resection. Sizing guide was placed. It was found to be a size 6 press-fit CR femur that was shown on the implant record at the beginning of this dictation. The drill holes were drilled for the epicondylar axis using Whitesides line and epicondyles as reference. At this time, the 4-in - 1 cutting block was placed. An anterior posterior and anterior and posterior chamfer cuts were then completed. Attention was turned to the tibia. The posterior medial lateral retractors were placed. The extramedullary tibial guide was placed. It was placed in the old footprint of the ACL. It was aligned with the center of the ankle and 0 degrees of slope, 9 mm was then resected off the unaffected side. There was found to be an acceptable reduction. At this time, posterior osteophytes were removed along with medial and lateral meniscus. A trial implant was placed with a correct sized tibia that was mentioned at the beginning of the dictation. A Jonathan size 6, 9-mm CS polyethylene insert was then placed. The patient's knee was brought through range of motion. The patella was tracking centrally and was stable to varus and valgus stress. Alignment was found to be roughly at 0 degrees. The tibia was stamped and drilled in proper rotation. The universal tibial base plate was impacted in place. Next, the Ralston size 6 press-fit CR femur impacted into place and the Ralston size 6, 9-mm CS polyethylene insert was placed. The patient's knee was brought into full extension. The patella was then press-fit in place at this time. Tourniquet was deflated. One liter dilute Betadine solution was irrigated through the knee along with 3 L of pulse lavage irrigation with Ancef. Periarticular injection was then completed. The patient's knee was brought through a range of motion. Knee was found to be stable to varus valgus stress, the patella was tracking centrally with full range of motion. At this time, a #2 barbed suture was used for closure of the medial parapatellar arthrotomy. Topical tranexamic acid was placed. 2-0 Vicryl was used subcutaneously, Prineo was used for the skin. The patient tolerated the procedure well and was sent to the PACU in stable condition. After this procedure was completed under sterile technique, 2 mL of 40 mg Kenalog and 4 mL of 0.25% Marcaine were injected to the right knee. The patient tolerated all procedures well. CHITO /[id number] IRISH
== END 2019-08-26 11:05 | disposition home or self-care (01) ==
LOC: JD.MS 09:54 → JD.SDS 09:54 → JD.MS 13:43 → JD.SDS 14:08 → JD.OB 14:20
PROVIDERS: ADMIT Orthopaedic Surgery; ATTEND Orthopaedic Surgery
DX: M17.0 Bilateral primary osteoarthritis of knee (principal); I10 Essential (primary) hypertension; E78.5 Hyperlipidemia, unspecified; I48.0 Paroxysmal atrial fibrillation; N52.9 Male erectile dysfunction, unspecified; I51.7 Cardiomegaly; K21.9 Gastro-esophageal reflux disease without esophagitis; Z96.652 Presence of left artificial knee joint; Z79.01 Long term (current) use of anticoagulants
CPT/HCPCS: 20610; 27447; 36415; 73560; 80053; 85027; 86140; 87641; 96374; 97110; 97116; 97161; 97165; 97535; A9270; C1776; G0378; J0171; J0360; J0690; J0697; J1885; J2001; J2250; J2270; J2704; J2795; J3010; J3301; J3370; J3490; J7120; 01402; 64450